=== PATIENT | female | born 1970 | race Caucasian/White ===

== ENCOUNTER → 2018-11-07 | Outpatient (CLI) | payer OTHER ==
--- NOTE | 2018-11-07 17:26 | XR ---
Right shoulder HISTORY: Right shoulder pain 3 views of the right shoulder Bone mineralization, joint spaces and alignment are maintained. Right lung apex as visualized is norm al. No fracture or dislocation. IMPRESSION: Normal right shoulder, shoulder MRI may be of benefit.
--- NOTE | 2018-11-07 17:27 | XR ---
Thoracic spine HISTORY: Pain 3 views of the thoracic spine Thoracic vertebral bodies show preserved height, alignment, and bone mineralization. Disc spaces mild ly reduced in the intervertebral disc spaces and midthoracic spine, there is mild spondylosis. IMPRESSION: Mild degenerative disc change, thoracic spine MRI could BE performed for additional evalu ation.
== END | disposition home or self-care (01) ==
LOC: RADXRYALE 15:13
PROVIDERS: ATTEND Internal Medicine
DX: M51.34 Other intervertebral disc degeneration, thoracic region (principal); M25.511 Pain in right shoulder
CPT/HCPCS: 72072